=== PATIENT | male | born 1970 | race Caucasian/White ===

== ENCOUNTER 2018-09-06 19:55 | Emergency (ER) | payer BC ==
[~2018-09-06 19:55] MED LIST: PROPOFOL 10 MG/ML 20 ML VIAL IV ONE; SUCCINYLCHOLINE CHLORIDE 100 MG/5 ML SYR IV ONE
[2018-09-06] MEDS ORDERED: SODIUM CHLORIDE 0.9% 1,000 ML IV ONE (20:17)
[2018-09-06] MEDS ORDERED: ONDANSETRON 4 MG/2 ML VIAL IVP STA (20:17)
[2018-09-06] MEDS ORDERED: GLUCAGON 1 MG/ML VIAL IVP STA (20:17)
--- NOTE | 2018-09-06 20:20 | ED ---
ENT HPI - General Source: patient Mode of arrival: ambulatory Limitations: no limitations <Vipin Clarke - Last Filed: 09/07/18 00:55> <Laurence Lozano - Last Filed: 09/07/18 01:16> - General Chief complaint: ENT Stated complaint: FB in throat Time Seen by Provider: 09/06/18 19:57 - History of Present Illness Initial comments: Patient is a 48-year-old male with no past medical history presenting for foreign body sensation in his throat. Patient states that approximately 7 PM, he was eating stew and feels like a piece of meat got stuck in his throat. His also happened in 2006 where he states that he had to have a scope completed to get the piece of chicken pulled out. However this time, he has no pain and states that he can swallow his spit but when he tries to eat food or drink he is not able to. He states that he has had a couple episodes of vomiting today since the episode started. (Vipin Clarke) - Related Data Previous Rx's Medication Instructions Recorded Omeprazole 40 mg PO DAILY #30 capsule. 09/07/18 Allergies Allergy/AdvReac Type Severity Reaction Status Date / Time No Known Allergies Allergy Verified 09/06/18 19:57 Review of Systems ROS Other: All systems not noted in ROS Statement are negative. <Vipin Clarke - Last Filed: 09/07/18 00:55> ROS Other: All systems not noted in ROS Statement are negative. <Laurence Lozano - Last Filed: 09/07/18 01:16> ROS Statement: Those systems with pertinent positive or pertinent negative responses have been documented in the HPI. Constitutional: Negative for chills, fatigue and fever. HENT: Negative for congestion. Positive for difficulty swallowing and foreign body sensation in throat Respiratory: Negative for chest tightness, shortness of breath and wheezing. Negative for cough Cardiovascular: Negative for chest pain and palpitations. Gastrointestinal: Negative for abdominal pain. Negative for abdominal distention , diarrhea, nausea and vomiting. Genitourinary: Negative for dysuria. Musculoskeletal: Negative for back pain, neck pain and neck stiffness. Skin: Negative for color change. Neurological: Negative for dizziness, speech difficulty, weakness and light- headedness. Psychiatric/Behavioral: Negative for agitation and confusion. Negative for anxiety (Vipin Clarke) Past Medical History Past Medical History: No Reported History History of Any Multi-Drug Resistant Organisms: None Reported Past Surgical History: Hernia Repair Past Psychological History: No Psychological Hx Reported Smoking Status: Never smoker Past Alcohol Use History: None Reported Past Drug Use History: None Reported <Vipin Clarke - Last Filed: 09/07/18 00:55> General Exam Limitations: no limitations <Vipin Clarke - Last Filed: 09/07/18 00:55> <Laurence Lozano - Last Filed: 09/07/18 01:16> - General Exam Comments Initial Comments: Constitutional: Pt is oriented to person, place, and time. Pt appears well- developed and well-nourished. No distress. HENT: Head: Normocephalic and atraumatic. Eyes: EOM are normal. Neck: Normal range of motion. Neck supple. Cardiovascular: Normal rate, regular rhythm, S1 normal, S2 normal and normal heart sounds. Exam reveals no gallop and no friction rub. No murmur heard. Pulmonary/Chest: Effort normal and breath sounds normal. No tachypnea and no bradypnea. No respiratory distress. No wheezes or rales noted. Abdominal: Soft. Bowel sounds are normal. Pt exhibits no shifting dullness, no distension, no pulsatile liver, no fluid wave, no abdominal bruit and no ascites. There is no tenderness. There is no rigidity, no rebound, no guarding, no tenderness at McBurney's point and negative Lindsey's sign. Musculoskeletal: Normal range of motion. Neurological: Pt is alert and oriented to person, place, and time. No cranial nerve deficit. Skin: Skin is warm and dry. No rash noted. Pt is not diaphoretic. No erythema. No pallor. Psychiatric: Pt has a normal mood and affect. Pt behavior is normal. Thought content normal. (Vipin Clarke) Course <Vipin Clarke - Last Filed: 09/07/18 00:55> <Laurence Lozano - Last Filed: 09/07/18 01:16> Vital Signs 09/06/18 09/06/18 09/06/18 19:57 22:06 22:30 Temperature 98.7 F Pulse Rate 82 68 Respiratory 16 18 Rate Blood Pressure 153/89 145/98 143/91 O2 Sat by Pulse 98 97 Oximetry 09/06/18 09/06/18 09/06/18 23:00 23:10 23:15 Temperature Pulse Rate 63 67 79 Respiratory 18 18 17 Rate Blood Pressure 141/100 139/95 139/95 O2 Sat by Pulse 95 93 L 96 Oximetry 09/06/18 09/07/18 09/07/18 23:30 00:30 00:45 Temperature Pulse Rate 77 100 90 Respiratory 14 15 14 Rate Blood Pressure 139/95 139/121 129/78 O2 Sat by Pulse 94 L 90 L 94 L Oximetry 09/07/18 01:00 Temperature Pulse Rate 71 Respiratory 14 Rate Blood Pressure 127/78 O2 Sat by Pulse 96 Oximetry - Reevaluation(s) Reevaluation #1: 09/07/18 22:12 - case discussed with GI longwall shearer operator as well as anesthesia and parties are agreeable to having the procedure performed at midnight. Patient continues to be resting comfortably in bed in no acute distress and protecting airway (Vipin Clarke) Reevaluation #2: 09/07/18 00:22 EGD team and anesthesia are currently here in the emergency department performing procedure. (Vipin Clarke) Medical Decision Making <Vipin Clarke - Last Filed: 09/07/18 00:55> <Laurence Lozano - Last Filed: 09/07/18 01:16> - Medical Decision Making Case is discussed with gastroenterology and it was advised that a food bolus was removed. He was also advised that the patient be on clear liquid diet for 24 hours as well started on a PPI. This was discussed with the patient. At the time of this note, patient was nearly back to baseline and able to state that he had some minor throat pain but felt better. Case is being signed out to Dr. Lozano who will observe the patient and then discharge when appropriate. (Vipin Clarke) She care was signed out to me by Dr. Clarke, patient had general anesthesia for EGD. At the time of sign out the patient was still sleepy and we are awaiting the patient to be fully awakened prepared for discharge. She was reevaluated at 1:15 AM, is awake, admits to being sleepy but this has been awake for 22 hours at this point. Patient feels comfortable being discharged home at this time. (Laurence Lozano) Disposition <Vipin Clarke - Last Filed: 09/07/18 00:55> Is patient prescribed a controlled substance at d/c from ED?: No <Laurence Lozano - Last Filed: 09/07/18 01:16> Clinical Impression: Food impaction of esophagus Condition: Good Instructions: Esophageal Foreign Body (ED) Prescriptions: Omeprazole 40 mg PO DAILY #30 capsule.dr Referrals: None,Stated [REFERRING] - 1-2 days Jose Rosado MD [STAFF PHYSICIAN] - 1-2 days
--- NOTE | 2018-09-06 20:56 | XR ---
EXAMINATION TYPE: XR chest 2V DATE OF EXAM: 09/06/2018 COMPARISON: NONE HISTORY: Chest pain TECHNIQUE: Frontal and lateral views of the chest are obtained. FINDINGS: Heart and mediastinum are normal. Lungs are clear. Diaphragm is normal. Bony thorax appear s normal. IMPRESSION: Normal chest
[2018-09-06] MEDS ORDERED: IV FLUID CONTINUATION 500 ML IV ONE (23:57)
[2018-09-07 01:21] VITALS: BP 120/81; PULSE 64; RESP 16; TEMP 98.4
--- NOTE | 2018-09-07 01:38 | PCN ---
PROCEDURE NOTE This is a patient of the emergency room and Dr. Jerardo Parker DATE OF SERVICE: September 07, 2018. PROCEDURE: Esophagogastroduodenoscopy and biopsy and removal of esophageal foreign body. PREOPERATIVE DIAGNOSIS: Obstructive dysphagia. POSTOPERATIVE DIAGNOSIS: 1. Impacted piece of meat removed with a snare/gently pushed with the endoscope into the stomach. 2. Hiatal hernia with corrugated esophagus raising the possibility of eosinophilic esophagitis. Multiple biopsies obtained. 3. Esophagitis in the area of the distal esophagus where the piece of meat was impacted. It could be on the basis of acid reflux. Preparation and sedation were provided by Anesthesia. BRIEF CLINICAL HISTORY: The patient is a 48-year-old male who presented to the emergency room with obstructive dysphagia with inability to swallow food or liquids or to some degree his saliva which happened at 6:00 pm September 06 while he was eating beef stew. The patient apparently had an episode 12 years ago and had over the years, he has been carefully eating and chewing. He denies heartburn or acid reflux. DESCRIPTION OF PROCEDURE: With the patient on his left lateral decubitus position and after informed consent and after adequate sedation and intubation which was performed by Anesthesia, I passed Olympus GIFH 190 video upper endoscope through the cricopharyngeus down the esophagus. The esophagus showed corrugations and linear superficial erosions and the impacted piece of meat was seen in the distal esophagus. There were secretions that I suctioned. The appearance of the esophagus raised the possibility of the eosinophilic esophagitis. Initially, I tried to remove the impacted piece of meat using the snare and in fact, I chopped a few pieces off it. However, I ended up using the endoscope to gently push the piece of meat into the stomach to relieve the obstruction. The underlying mucosa appeared edematous and friable, raising the possibility of an element of esophagitis, perhaps reflux related. The GE junction was at 40-41 cm from the incisors and there was a sliding hiatal hernia. The stomach was insufflated with air and inspected in detail including the retroflexed view and the cardia. No obvious abnormalities were seen. The pyloric channel, duodenal bulb, postbulbar area and descending duodenum appeared within normal limits. I obtained multiple biopsies from the esophagus and endoscope was withdrawn. PLAN: I summarized the findings to the patient and his . We will keep him on clear liquids for around 24 hours, then he can advance his diet as tolerated. We will treat with PPI for the possibility of acid reflux while awaiting the biopsy results. I will see him in followup in few weeks and based on his course and biopsy results, I will make further determination regarding the longer-term management with acid reflux medications unless the biopsies show evidence of the eosinophilic esophagitis. In which case we might introduce budesonide orally or by inhalers. Consideration can be also made for dilation if he continues to have issues with dysphagia after healing of his esophagitis. He will follow up with you as planned and I will keep you updated on his progress. MMODL / IJN: [id number] /
== END 2018-09-07 01:37 | disposition home or self-care (01) ==
LOC: EC 19:55
DX: T18.128A Food in esophagus causing other injury, initial encounter (principal)
CPT/HCPCS: 71046; 43239; 43247; 99284; J1610; J2405; 88305

== ENCOUNTER → 2021-03-02 | Outpatient (CLI) | payer OTHER ==
--- NOTE | 2021-03-02 13:30 | XR ---
EXAMINATION TYPE: XR hand complete RT DATE OF EXAM: 03/02/2021 COMPARISON: None HISTORY: Contusion right thumb TECHNIQUE: 3 view right hand FINDINGS: No acute fractures or dislocations are evident. Soft tissues are normal. Joint spaces are p reserved. Follow up exams can be performed 7-10 days from acute trauma for continued pain. IMPRESSION: 1. Normal three-view right hand
== END | disposition home or self-care (01) ==
LOC: RADXRMAIN 13:13
PROVIDERS: ATTEND Emergency Medicine
DX: S60.011A Contusion of right thumb without damage to nail, initial encounter (principal)

== ENCOUNTER → 2022-05-13 | Outpatient (CLI) | payer BC ==
[2022-05-13 10:56] LABS: African American GFR (CKD) >90 (>60 ml/min/1.73 sqM); Blood Urea Nitrogen 15 mg/dL (9-20); Non-African American GFR(CKD) >90 (>60 ml/min/1.73 sqM)
--- NOTE | 2022-05-16 09:35 | CT ---
EXAMINATION TYPE: CT ChestAbdPelvis w con DATE OF EXAM: 05/13/2022 COMPARISON: CT dated 02/05/2022 HISTORY: Follow-up leukemia CT DLP: 1395 mGycm Automated exposure control for dose reduction was used. CONTRAST: CT scan of the chest, abdomen and pelvis is performed with Oral Contrast and with IV Contrast, patien t injected with 100 mL of Isovue 300. FINDINGS: LUNGS: Stable middle lobe calcified granuloma. Unremarkable lungs otherwise. Patent trachea and main bronchi. No pleural effusion. MEDIASTINUM: Interval regression of the previously seen lymphadenopathy. For example: -A subcarinal lymph node measures 8 mm compared to 17 mm previously. -A retrocardiac lymph node measures 8 mm compared to 14 mm previously. -A left hilar lymph node measures 11 mm compared to 14 mm previously. -A right axillary lymph node measures 9 mm compared to 12 mm previously. -A left axillary lymph node measures 10 mm compared to 17 mm previously. Regressing supraclavicular lymph nodes. No gross cardiomegaly. No pericardial effusion. Patent major mediastinal vessels. OTHER: 16 mm right thyroid lobe hypodensity, appreciated previously. Recommend correlation with thyr oid ultrasound results. No aggressive bone lesion. LIVER/GB: Stable caudate lobe cyst. No other definite intrahepatic focal lesion. Unremarkable gallbla dder. PANCREAS: No significant abnormality is seen. SPLEEN: Slightly smaller spleen measuring 13.2 cm compared to 14.1 cm previously. ADRENALS: No significant abnormality is seen. KIDNEYS: No significant abnormality is seen. BOWEL: Uncomplicated colonic diverticulosis. Mild wall thickening of segments of the colon, nonspeci fic. No bowel obstruction. REPRODUCTIVE ORGANS: No gross abnormality seen. LYMPH NODES: Regressing inguinal, external iliac, retroperitoneal and mesenteric lymph nodes. For exa mple, -A right inguinal lymph node measures 11 mm compared to 13 mm previously. -A left inguinal lymph node measures 8 mm compared to 11 mm previously. -An inferior retroperitoneal lymph node measures 9 mm compared to 10 mm previously. -An inferior mesenteric lymph node measures 6 mm compared to 12 mm previously. Persistent innumerable residual mainly subcentimeter lymph nodes are seen most evident in the mesente ry. OSSEOUS STRUCTURES: No aggressive bone lesion. OTHER: Unremarkable abdominal aorta. No sizable ascites. Small fat-containing umbilical hernia. IMPRESSION: Interval regression of the previously seen enlarged lymph nodes in the chest, abdomen and pelvis with smaller spleen as detailed above. This is consistent with partial response. Other findings as descri bed above.
== END | disposition home or self-care (01) ==
LOC: RADCTMAIN 09:13
PROVIDERS: ATTEND Internal Medicine Hematology & Oncology
DX: C91.10 Chronic lymphocytic leukemia of B-cell type not having achieved remission (principal); R59.0 Localized enlarged lymph nodes
CPT/HCPCS: 82565; 84520; 71260; 74177; 36415; Q9967 ×2

== ENCOUNTER → 2022-09-20 | Outpatient (CLI) | payer BC ==
[2022-09-20 12:36] LABS: African American GFR (CKD) >90 (>60 ml/min/1.73 sqM); Blood Urea Nitrogen 15 mg/dL (9-20); Non-African American GFR(CKD) >90 (>60 ml/min/1.73 sqM)
--- NOTE | 2022-09-20 14:58 | CT ---
EXAMINATION TYPE: CT ChestAbdPelvis w con CT DLP: 844.00 mGycm, Automated exposure control for dose reduction was used. DATE OF EXAM: 09/20/2022 2:36 PM COMPARISON: 05/13/2022. 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 Two-dimensional cor onal and sagittal reconstructions were obtained. Contrast used:100 ml mL of Isovue 300 with IV Contrast, Oral contrast used: with Oral Contrast Findings: CHEST: LUNGS/ PLEURA: The lung parenchyma appears unremarkable. AIRWAY: Patent and unremarkable. HEART: Size within normal limits. MEDIASTINUM: No gross evidence of adenopathy. No enlarged mediastinal lymph nodes right posterior tra cheal lymph node similar measuring 7 mm in short axis right subcarinal lymph node measuring 7 mm in s hort axis as well as also stable. VASCULATURE: No aortic aneurysm. MUSCULOSKELETAL: No acute osseous abnormalities. SOFT TISSUES/LYMPH NODES: Mild gynecomastia changes. Similar bilateral axillary lymph nodes with fatt y hilum are present. Measuring up to 8 mm in short axis on the right and 7 mm in short axis on the le ft. LOWER NECK: Similar similar right ABDOMEN: ABDOMEN LIVER: Diffusely hypoattenuating parenchyma. GALLBLADDER AND BILE DUCTS: Unremarkable. PANCREAS: Unremarkable. SPLEEN: Measures up to 12.6 cm in the AP dimension. ADRENAL GLANDS: Unremarkable. KIDNEYS AND URETERS: No evidence of hydronephrosis or renal calculus. The ureters are unremarkable. PELVIS BLADDER: Unremarkable REPRODUCTIVE: Unremarkable. ABDOMEN & PELVIS STOMACH AND BOWEL: No evidence of bowel obstruction. Small hiatal hernia is present. PERITONEUM: No evidence of pneumoperitoneum or free fluid. VASCULATURE: No evidence of aortic aneurysm. MUSCULOSKELETAL: No acute osseous abnormalities LYMPH NODES: There are prominent lymph nodes are seen within the mesentery as seen on prior. Measurin g up to 6 mm in short axis. Additional left common iliac lymph node measuring 12 mm in short axis, al so stable. Similar bilateral inguinal lymph node morphology with fatty hilum. SOFT TISSUE/ABDOMINAL WALL: Unremarkable IMPRESSION: 1. Stable exam, No new or enlarging lymph nodes identified. 2. Hepatic steatosis.
== END | disposition home or self-care (01) ==
LOC: RADCTMAIN 11:54
PROVIDERS: ATTEND Internal Medicine Hematology & Oncology
DX: C91.10 Chronic lymphocytic leukemia of B-cell type not having achieved remission (principal); K76.0 Fatty (change of) liver, not elsewhere classified
CPT/HCPCS: 82565; 84520; 71260; 74177; 36415; Q9967